=== PATIENT | female | born 1955 | race Caucasian/White ===

== ENCOUNTER 2018-09-29 18:30 | Emergency (ER) | payer OTHER ==
--- NOTE | 2018-09-29 19:10 | EDPHY ---
General Time Seen by Provider: 09/29/18 18:46 Narrative: CLINICAL IMPRESSION: Closed, Amaro fracture of the right 5th metatarsal ASSESSMENT/PLAN: 63 yo female presents to the ER with acute right foot pain after falling down 1 step in her house tonight. She is complaining of pain over the lateral aspect of the foot with xray findings consistent with a closed, non-displaced Trent's fracture of the right 5th metatarsal. She is neurovascularly intact. No open wounds. She was placed in a posterior short-leg fiberglass splint provided crutches. Instructed to remain nonambulatory until follow-up with Orthopedics. Referral provided, home care discussed, warning signs return to ED sooner alignment discharge. DIFFERENTIAL DX: Differential includes but not limited to acute fracture, dislocation, acute sprain, ligamentous injury. ED PROCEDURES: Procedure: Splint placement. A posterior short-leg splint was applied to right leg by software support technician, supervised by myself. Crutches provided After application of the splint I returned and re- examined the patient. The splint was adequately immobilizing the joint and distal to the splint the patient's circulation and sensation was intact. ED COURSE: xrays reviewed with patient CHIEF COMPLAINT: Right foot pain HPI: 63-year-old female presents to the emergency department with acute right foot pain after falling down 1 step earlier this evening. Patient has swelling to the right foot, no reported ankle or lower leg pain. No reported loss of sensation. No open wounds. She has had numerous orthopedic surgeries to this foot in the past. 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 Neurological: No sensory loss or weakness. PHYSICAL EXAM: General Appearance: Alert, oriented, appropriate for age, cooperative, NAD, well hydrated, non-toxic appearing, VSS, no hypoxia. Neurological: Alert and oriented x 3, normal sensation and strength of extremities Skin: Warm, dry, no rashes, no nodules on palpation. Musculoskeletal: Range of motion limited by pain. Swelling noted to the dorsum of the right foot over the proximal 4th and 5th metatarsal. Distal neurovascular exam intact. No reproducible pain to medial or lateral malleolus. MEDICAL DECISION MAKING: Patient was seen independently. Secondary supervising physician at time of evaluation was Dr Chew. Diagnosis: Closed, right, nondisplaced Amaro fracture. New, requires workup Summary: See assessment and plan for summary of ED visit Independent visualization of images, tracing, or specimens yes. Patient Progress: Dr Chew. - Diagnostics Imaging Results: Imaging Impressions Ankle X-Ray 09/29/18 18:38 Impression: 1. Nondisplaced fracture involving the base of the fifth metatarsal. 2. More pronounced osteochondral cystic change in the medial talar dome than in 2010. 3. Plantar calcaneal enthesophytosis. - History Smoking Status: Never smoked - Objective Vital Signs: Initial Vital Signs Temperature (C) 36.5 C 09/29/18 18:35 Heart Rate 58 L 09/29/18 18:35 Respiratory Rate 18 09/29/18 18:35 Blood Pressure 169/91 H 09/29/18 18:35 O2 Sat (%) 97 09/29/18 18:35 O2 Delivery Mode Room Air Allergies/Adverse Reactions: No Known Allergies Allergy (Unverified 09/29/18 18:35) Home Medications: Medication Instructions Recorded NK [No Known Home Meds] 09/29/18 Departure - Departure Disposition: Home, Routine, Self-Care Clinical Impression: Amaro fracture Qualifiers: Encounter type: initial encounter Fracture type: closed Laterality: right Qualified Code(s): S99.191A - Other physeal fracture of right metatarsal, initial encounter for closed fracture Condition: Good Instructions: Foot Fracture in Adults (ED) Additional Instructions: DISCHARGE INSTRUCTIONS FROM YOUR DOCTOR Thank you for visiting our emergency department today. Please keep in mind that discharge from the emergency department does not mean that there is nothing wrong - it simply means that we have not identified an emergency condition that requires further evaluation or treatment in the hospital. You should always plan to follow up with primary care for re-evaluation of your condition in the next 2-3 days. If you have been referred to a specialist, please call as soon as possible (today or tomorrow) to schedule your follow up appointment at the appropriate time. XRAYS SHOW A FRACTURE OF THE RIGHT 5TH METATARSAL. THIS NEEDS ORTHOPEDIC EVALUATION. PLEASE CALL THEM FOR AN APPOINTMENT TOMORROW. A SPLINT WAS APPLIED TONIGHT, PLEASE DO NOT BEAR WEIGHT ON THIS LEG UNTIL YOU ARE SEEN BY ORTHO. REST AND ELEVATE THE AFFECTED EXTREMITY MUCH POSSIBLE. ICE THE AFFECTED AREAS 20 MIN ON, 20 MIN OFF FOR THE NEXT SEVERAL DAYS. PLEASE USE TYLENOL OR IBUPROFEN OVER THE COUNTER IN APPROPRIATE DOSES OUTLINED ON YOUR DISCHARGE PAPERS. TAKE IBUPROFEN WITH FOOD AND A LARGE GLASS OF WATER. RETURN TO THE ER FOR WORSENING PAIN, FEVER, LOSS OF SENSATION TO FOOT OR TOES, OR ANY OTHER CONCERNS. People present with illnesses and injuries in different ways, and it is always possible that we have missed something. You may always return for re-evaluation if symptoms worsen or if they are not improving or if you develop new/different symptoms. Again, thank you for choosing our emergency department. We hope that you feel better. Referrals: Mikie Lawson MD [Primary Care Provider] - As per Instructions Joaquin Mcdaniel MD [Medical Doctor] - As per Instructions
[2018-09-29 19:46] VITALS: BP 131/98
== END 2018-09-29 19:45 | disposition home or self-care (01) ==
PROC: 2W3SX1Z Immobilization of Right Foot using Splint (ICD-10-PCS; principal; 2018-09-29)
DX: S92.354A Nondisplaced fracture of fifth metatarsal bone, right foot, initial encounter for closed fracture (principal); W10.9XXA Fall (on) (from) unspecified stairs and steps, initial encounter; Y92.008 Other place in unspecified non-institutional (private) residence as the place of occurrence of the external cause; Y93.9 Activity, unspecified; Y99.9 Unspecified external cause status